=== PATIENT | female | born 1985 | race Caucasian/White ===

== ENCOUNTER 2017-08-20 23:54 | Emergency (ER) | payer OTHER ==
[2017-08-21 00:01] VITALS: RESP 20; TEMP 98.3; O2SAT 99
[2017-08-21] MEDS ORDERED: Bacitracin 500 Units/gm Oint Foilpak UD TOP ONE (01:57)
[2017-08-21] MEDS ORDERED: Bacitracin 500 Units/gm Oint Foilpak UD ONE (02:06)
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
[2017-08-21 02:38] VITALS: BP 128/85; PULSE 94
== END 2017-08-21 02:38 | disposition home or self-care (01) ==
LOC: C.ER 23:54
DX: S39.012A Strain of muscle, fascia and tendon of lower back, initial encounter (principal); V49.40XA Driver injured in collision with unspecified motor vehicles in traffic accident, initial encounter; Z23 Encounter for immunization